=== PATIENT | female | born 1955 | race Caucasian/White ===

== ENCOUNTER 2019-11-13 09:09 | Emergency (ER) | payer OTHER, SELFPAY ==
--- NOTE | ~2019-11-13 | CT_ITS ---
EXAMINATION: CTA chest PE protocol DATE: 11/13/2019 12:36 INDICATION: Shortness of breath TECHNIQUE: Computed tomography angiography (CTA) of the chest was performed with 100 mL Omnipaque-350 intravenous contrast timed to evaluate the pulmonary arteries. Coronal maximum intensity projection 3D-reconstructions were created by the technologist. The dose-length product (DLP) was 411.02 mGy-cm. Automated exposure control and iterative reconstruction technique were employed. COMPARISON: None. FINDINGS: Respiratory motion artifact somewhat limits examination. The pulmonary arteries are well-op acified. No pulmonary embolism is identified. There our bilateral breast implants which appear to be related to bilateral mastectomy with implant reconstruction. No pathologically enlarged thoracic lymp h nodes are identified. The heart size is normal. There are patchy subpleural groundglass opacities, right greater than left, with a lower lung zone predominance. There is no pleural effusion or pneumot horax. There is moderate thoracic spondylosis. IMPRESSION: 1. No pulmonary embolism identified, sensitivity slightly limited by respiratory motion. 2. Lower lung zone predominance groundglass opacities in a pattern consistent with COVID 19 pneumonia . Reviewed, dictated and finalized at location B. IMPRESSION: 1. No pulmonary embolism identified, sensitivity slightly limited by respirator y motion. 2. Lower lung zone predominance groundglass opacities in a pattern consistent w ith COVID 19 pneumonia.
--- NOTE | ~2019-11-13 | XR_ITS ---
XR chest 1V portable INDICATION: Shortness of breath. Covid. TECHNIQUE: 2 view chest. FINDINGS: No prior studies for comparison. There is mild bilateral interstitial prominence and peribronchial cuffing. There is no focal consoli dation, pleural effusion, or pneumothorax. The cardiomediastinal silhouette is normal.] IMPRESSION: 1. Findings most consistent with bronchiolitis versus an atypical or viral pneumonia. Reviewed, dictated and finalized at location A. IMPRESSION: 1. Findings most consistent with bronchiolitis versus an atypical or viral pne [facility].
[2019-11-13 09:15] VITALS: BP 137/75; PULSE 83; RESP 16; TEMP 37.2; O2SAT 99
--- NOTE | 2019-11-13 09:18 | ECG_ITS ---
Measurements Intervals New Point Rate: 80 P: 28 ND: 191 QRS: 11 QRSD: 98 T: 32 QT: 368 QTc: 426 Interpretive Statements SINUS RHYTHM NORMAL ECG Electronically Signed On 11-13-2019 10:43:40 CDT by Uziel Fofana D.O.
[2019-11-13 09:20] VITALS: PULSE 81; O2SAT 99
[2019-11-13 09:35] LABS: Basophils Percent Auto 0.2 % (0.2-1.2); Hematocrit 42.4 % (37.0-47.0); Hemoglobin 14.5 g/dL (12.0-15.0); Immature Granulocyte Absolute 0.01 K/mm3 (0.00-0.031); Immature Granulocyte Percent A 0.2 % (0-0.5); Lymphocytes Absolute Auto 1.14 K/mm3 (0.9-3.2); Lymphocytes Percent Auto 25.5 % (18.3-44.2); Mean Corpuscular HGB Conc 34.2 g/dl (32-36); Mean Corpuscular Hemoglobin 31.3 pg (26-34); Mean Corpuscular Volume 91.6 fl (80-100); Mean Platelet Volume 10.8 fl (7.4-10.4); Monocytes Absolute Auto 0.3 K/mm3 (0.1-0.6); Neutrophils Percent Auto 68.1 % (45.5-73.1); Platelet Count Result 168 k/mm3 (150-375); Red Blood Count 4.63 M/mm3 (4.2-5.4); White Blood Count 4.5 K/mm3 (4.5-10.0)
[2019-11-13 09:48] LABS: Anion Gap 9 mmol/L (8-16); Blood Urea Nitrogen 12 mg/dL (7-17); Calcium 8.7 mg/dL (8.4-10.2); Carbon Dioxide 29 mmol/L (22-30); Chloride 99 mmol/L (98-107); Estimated CRCL calculation 76 ml/min; Estimated Glomerular Filt Rate > 60; Glucose 115 mg/dL (65-105); Potassium 4.1 mmol/L (3.4-5.0); Sodium 137 mmol/L (137-145)
--- NOTE | 2019-11-13 10:29 | ED.SOB ---
HPI - SOB/Dyspnea General Chief Complaint: Shortness of Breath/Dyspnea Stated Complaint: covid+, more short of breath Time Seen by Provider: 11/13/19 09:48 Source: patient Mode of arrival: ambulatory Limitations: no limitations History of Present Illness HPI Narrative: This patient is 64 year old female who presents for evaluation of worsening sob. She reports she was diagnosed with COVID 19 last week. She reports 1 week ago she developed headache, sinus congestion, cough, diarrhea. She states she was starting to feel better but last night she started to feel unwell again. Last night she developed fatigue, nausea and she feels sob. She reports she feels like she is having trouble getting a deep breath. She also thinks she had a fever last night. MD elicited complaint: shortness of breath Related Data Allergies Allergy/AdvReac Type Severity Reaction Status Date / Time codeine AdvReac Mild nausea Verified 12/05/16 10:47 Review of Systems Review of Systems: All systems reviewed & are unremarkable except as noted in HPI and below Constitutional: Constitutional: Reports fatigue and Reports fever(s) Eyes: Eyes: Reports no additional eye complaints Respiratory: Respiratory: Reports dyspnea Gastrointestinal: Gastrointestinal: Denies abdominal pain, Reports diarrhea and Reports nausea Neurologic: Reports headache(s) [facility] Past Medical History Medical History (Updated 11/13/19 @ 13:20 by Jennifer Proctor MD) Breast cancer Surgical History Surgical History (Updated 11/13/19 @ 10:31 by Jennifer Proctor MD) H/O mastectomy Family History Family History (Updated 11/01/13 @ 07:13 by DOCTOR UNKNOWN) Father Carcinoma of colon Social History Social History Smoking end date: 03/07/00 Alcohol intake: current Gender identity (if verbalized by the patient): Female Exam Narrative: Exam Narrative: GENERAL: Well-appearing, well-nourished, and in no acute distress. HEAD: Normocephalic, atraumatic EYES: PERRLA and EOMI, conjunctiva clear without discharge EARS: TM's clear bilaterally without erythema or dullness NOSE: Nares clear, no rhinorrhea or epistaxis THROAT:Mucous membranes moist, Oropharynx normal without erythema, exudate, peritonsillar swelling or fluctuance NECK: Supple, without lymphadenopathy or mass RESPIRATORY: No respiratory distress, Airway patent, Respirations non-labored, Clear to auscultation without rales, rhonchi or wheeze HEART: Regular rate and rhythm. No murmur heard. Normal peripheral pulses. ABDOMEN: Soft, nontender, nondistended, normal active bowel sounds. No masses. No rebound or guarding, No organomegaly. EXTREMITIES: No edema, normal strength with full range of motion. SKIN: Warm, dry, normal color without rash NEURO: Alert and oriented x3. CN 2-12 grossly intact. No focal deficits. PSYCH: Normal mood and affect. Course Reevaluation(s) Reevaluation #1: I discussed with patient that labs are unremarkable. I discussed that she is not requiring oxygen and she is in no acute distress so she is stable for discharge home. Date: 11/13/19 Time: 13:16 Vital Signs Vital signs: Vital Signs Temperature 99 F 11/13/19 09:15 Pulse Rate 83 11/13/19 09:15 Respiratory Rate 16 11/13/19 09:15 Blood Pressure 137/75 11/13/19 09:15 Pulse Oximetry 99 11/13/19 09:15 Temperature 99 F 11/13/19 09:15 Pulse Rate 78 11/13/19 13:24 Respiratory Rate 15 11/13/19 13:24 Blood Pressure 108/58 L 11/13/19 13:24 Pulse Oximetry 97 11/13/19 13:24 MDM - SOB/Dyspnea Lab Data Attestation: I reviewed the patient's lab results. Result diagrams: 11/13/19 09:28 11/13/19 09:28 Labs: Lab Results 11/13/19 11/13/19 11/13/19 Range/Units 09:28 09:28 09:28 WBC 4.5 (4.5-10.0) K/mm3 RBC 4.63 (4.2-5.4) M/mm3 Hgb 14.5 (12.0-15.0) g/dL Hct 42.4 (37.0-47.0) % MCV 91.6 (80-100) fl MCH 31.3 (26-34)
[2019-11-13 10:38] VITALS: BP 132/79; PULSE 78; RESP 22; O2SAT 97
[2019-11-13] MEDS: ONDANSETRON INJ 4 MG/2 ML VIAL IV PUSH (10:44)
[2019-11-13] MEDS: LACTATED RINGERS 1,000 ML 999 ML IV CONT (10:44)
[2019-11-13] MEDS: ALBUTEROL SULFATE (*SP) AEROSOL 1 PUFF 6 PUFF INHALATION (10:48)
--- NOTE | 2019-11-13 11:09 | PC.NURSE ---
PT REPORT TO JUAN KHAN AT THIS TIME, SHE HAS ASSUMED PT CARE.
--- NOTE | 2019-11-13 11:13 | PC.NURSE ---
SPOKE WITH LAB, THEY WILL WORK ON ADDING ON ADDITIONAL LABS ORDERED BY ERP. TO CONTACT IF THERE IS AN ISSUE.
[2019-11-13 11:38] LABS: Alanine Aminotransferase 46 U/L (4-35); Albumin Level 4.4 g/dL (3.5-5.1); Alkaline Phosphatase 114 U/L (38-126); Aspartate Amino Transferase 46 U/L (14-36); Bilirubin,Total 0.4 mg/dL (0.2-1.3)
[2019-11-13 11:40] LABS: INR 0.9; Prothrombin Time 12.1 Seconds (11.1-14.7)
[2019-11-13 11:41] LABS: Partial Thromboplastin Time 29.8 SECONDS (22.3-36.8)
[2019-11-13 11:44] LABS: D Dimer 0.69 ug/mL (<0.48)
[2019-11-13 11:49] LABS: CRP 1.9 mg/dL (<1.0); Troponin I < 0.012 ng/mL (0.000-0.034)
--- NOTE | 2019-11-13 12:26 | PC.NURSE ---
to CT at this time
[2019-11-13 13:17] VITALS: BP 108/58; PULSE 79; RESP 13; O2SAT 96
[2019-11-13 13:24] VITALS: BP 108/58; PULSE 78; RESP 15; O2SAT 97
== END 2019-11-13 13:25 | disposition home or self-care (01) ==
PROVIDERS: Emergency Provider General Practice
DX: U07.1 COVID-19 (principal); J12.89 Other viral pneumonia; Z85.3 Personal history of malignant neoplasm of breast; Z90.10 Acquired absence of unspecified breast and nipple
CPT/HCPCS: 36415; 71045; 71275; 80048; 80076; 84484; 85025; 85380; 85610; 85730; 86140; 93005; 96361; 96374; 99284; A9270; J2405; J7120; Q9967

== ENCOUNTER → 2019-11-26 12:02 | Outpatient (CLI) | payer OTHER, SELFPAY ==
--- NOTE | ~2019-11-26 | XR_ITS ---
XR knee LT min 4V 11/26/2019 12:57 Indication: Left knee pain Procedure: 4 views left knee Comparison: No prior studies for comparison. Findings: Moderate tricompartment osteoarthritis of the left knee. No fracture, subluxation or disloc ation. No significant joint effusion. Impression: 1: Moderate osteoarthritis of the left knee. Reviewed, dictated and finalized at location A. Impression: 1: Moderate osteoarthritis of the left knee.
== END ==
PROVIDERS: PCP Emergency Medicine; Visit Provider Emergency Medicine
DX: R74.8 Abnormal levels of other serum enzymes (principal); M17.12 Unilateral primary osteoarthritis, left knee
CPT/HCPCS: 73564

== ENCOUNTER 2019-12-03 07:32 | Outpatient (CLI) | payer OTHER, SELFPAY ==
--- NOTE | ~2019-12-03 | US_ITS ---
US right upper quadrant DATE: 12/03/2019 08:08 INDICATION: Elevated liver function tests TECHNIQUE: Real-time imaging of liver, pancreas, gallbladder COMPARISON: 12/05/2016 CT abdomen pelvis FINDINGS: There is ringdown artifact of the gallbladder wall suggesting adenomyomatosis of the gallbl adder. There are mobile approximately 1 cm filling defects of the gallbladder with associated shadowi ng consistent with cholelithiasis. No gallbladder wall thickening is noted. No pericholecystic fluid collection. Negative sonographic Cortes's sign. No hepatic space-occupying mass lesion is evident. Normal hepatopedal portal venous flow direction. The pancreas is partially obscured by bowel gas. The common bile duct measures 2.8 mm, normal. IMPRESSION: Cholelithiasis Adenomyomatosis of the gallbladder Reviewed, dictated and finalized at Location A. Reviewed, dictated and finalized at location B.
== END 2019-12-03 07:33 | disposition home or self-care (01) ==
PROVIDERS: PCP Emergency Medicine; Visit Provider Emergency Medicine
DX: R74.8 Abnormal levels of other serum enzymes (principal); K80.20 Calculus of gallbladder without cholecystitis without obstruction
CPT/HCPCS: 76705

== ENCOUNTER 2020-04-05 09:51 | Outpatient (CLI) | payer OTHER, SELFPAY ==
[2020-04-05 10:16] LABS: Basophils Absolute Auto 0.1 K/mm3 (0.0-0.1); Eosinophils Absolute Auto 0.1 K/mm3 (0-0.3); Eosinophils Percent Auto 1.6 % (0-4.4); Hematocrit 40.9 % (37.0-47.0); Hemoglobin 13.5 g/dL (12.0-15.0); Immature Granulocyte Absolute 0.01 K/mm3 (0.00-0.031); Immature Granulocyte Percent A 0.2 % (0-0.5); Lymphocytes Absolute Auto 2.21 K/mm3 (0.9-3.2); Lymphocytes Percent Auto 35.1 % (18.3-44.2); Mean Corpuscular Hemoglobin 30.8 pg (26-34); Mean Corpuscular Volume 93.2 fl (80-100); Mean Platelet Volume 10.6 fl (7.4-10.4); Monocytes Absolute Auto 0.5 K/mm3 (0.1-0.6); Monocytes Percent Auto 7.5 % (2.6-8.5); Neutrophils Absolute Auto 3.5 K/mm3 (1.3-6.7); Neutrophils Percent Auto 54.6 % (45.5-73.1); Platelet Count Result 251 k/mm3 (150-375); Red Blood Count 4.39 M/mm3 (4.2-5.4); Red Cell Distribution Width 13.4 % (11.5-14.5); White Blood Count 6.3 K/mm3 (4.5-10.0)
[2020-04-05 10:29] LABS: Alanine Aminotransferase 39 U/L (4-35); Albumin Level 4.5 g/dL (3.5-5.1); Alkaline Phosphatase 91 U/L (38-126); Anion Gap 2 mmol/L (8-16); Aspartate Amino Transferase 36 U/L (14-36); Bilirubin,Total 0.6 mg/dL (0.2-1.3); Blood Urea Nitrogen 16 mg/dL (7-17); Calcium 9.3 mg/dL (8.4-10.2); Carbon Dioxide 31 mmol/L (22-30); Chloride 105 mmol/L (98-107); Estimated Glomerular Filt Rate > 60; Glucose 106 mg/dL (65-105); Potassium 4.4 mmol/L (3.4-5.0); Sodium 138 mmol/L (137-145)
[2020-04-08 09:08] LABS: H pylori Ag Stool Not Detected (Not Detected)
== END 2020-04-05 09:52 | disposition home or self-care (01) ==
LOC: ANHLAB 09:54
PROVIDERS: PCP Emergency Medicine; Visit Provider Surgery
DX: R10.13 Epigastric pain (principal); Z01.818 Encounter for other preprocedural examination
CPT/HCPCS: 36415; 80053; 85025; 87338

== ENCOUNTER 2020-04-14 02:13 | Day surgery (SDC) | payer OTHER, SELFPAY ==
[2020-04-03 16:13] VITALS: BMI 31.8
[2020-04-14] VITALS (8 sets, daily range): BP systolic 111–137; BP diastolic 64–74; PULSE 57–76; RESP 10–18; TEMP 36.3–36.8; O2SAT 92–100
--- NOTE | 2020-04-14 13:10 | SUR.PREOP ---
1235 SPOKE WITH PT PRIOR TO ARRIVAL ABOUT SURGERY TIME DELAY. 1310 PT UPDATED WITH CONTINUED DELAY OF SURGERY TIME.
--- NOTE | 2020-04-14 13:49 | WPDANESEPPF ---
Anes - Initial Pre Proc Eval Procedure: Operation Date: 04/14/20 14:30 Proposed Procedures p Laparoscopic Cholecystectomy, Possible Intraoperative Cholangiogram, Possible Open - Saman Smith MD Date/Time: 04/14/20 13:49 Surgeon: Saman Smith MD Pre Op Diagnosis: Chronic Cholecystitis With Choleliathiasis Patient Data Age: 64 Gender: F Height: 5 ft 9 in Weight: 98.7 kg Last Vital Signs Temp 36.3 C L 04/14/20 12:17 Pulse 72 04/14/20 12:17 Resp 18 04/14/20 12:17 BP 137/67 04/14/20 12:17 Pulse Ox 99 04/14/20 12:17 Allergies Allergy/AdvReac Type Severity Reaction Status Date / Time codeine AdvReac Mild nausea Verified 04/03/20 16:06 Home Medications Medication Instructions Recorded Confirmed Type valacyclovir 500 mg tablet 500 mg PO DAILY 12/13/19 04/03/20 History biotin 2,000 mcg PO DAILY 04/03/20 04/03/20 History cholecalciferol (vitamin D3) 375 mcg PO DAILY 04/03/20 04/03/20 History [Vitamin D3] turmeric 400 mg PO DAILY 04/03/20 04/03/20 History vitamin B complex 1 cap PO DAILY 04/03/20 04/03/20 History Patient hx anesthesia problems: none Family hx anesthesia problems: none PMFSH Past Medical History Medical History Asthma Breast cancer Kidney stone Surgical History Surgical History H/O breast reconstruction right side in 2019 H/O mastectomy October 2017: Bilateral History of bunionectomy History of tonsillectomy History of tubal ligation Family History Family History Father , Age 62 Carcinoma of colon Grandparent Tuberculosis Social History Social History Smoking packs per day: 1 Smoking cigarettes per day: 20.0 Years smoked: 10 Smoking pack-years: 10.00 Smoking status: Former smoker Smoking end date: 09/04/94 Alcohol intake: current Drinks per week: 7 Substance use: never Living arrangements: alone Additional occupation/education comments: [employer] Gender identity (if verbalized by the patient): Female Spiritual care concerns: No Anes - Eval Final PreProcedure Day of Procedure 04/14/20 13:49 Patient weight: obese Heart: regular rate and rhythm Lungs: clear to auscultation Airway: Mallampati scale class II Neurological: alert and oriented Last oral intake: >/= 8 hours ASA classification: III Emergent: no Anesthetic plan: proceed Anesthesia type and monitoring: general ETT and standard monitoring Informed Consent: The patient's anesthetic plan and its attendant risks and benefits were discussed with the patient/family/POA. Questions were solicited and answers provided to the satisfaction of the patient/family/POA.
[2020-04-14] MEDS: ACETAMINOPHEN 500 MG TABLET 1000 MG PO (14:08)
[2020-04-14] MEDS: KETOROLAC 15 MG/ML VIAL (*BKC) IV PUSH (14:08)
[2020-04-14] MEDS: LACTATED RINGERS 1,000 ML 30 ML IV CONT ×2 (14:16→16:13)
--- NOTE | 2020-04-14 14:24 | SUR.PREOP ---
1240 PT REMAINS DRESSED, SITTING IN RECLINER, DENIES NEEDS 1400 PT AGREES TO HAVE SURGERY WITH MACEY BERMUDEZGING INSTRUCTIONS GIVEN.
[2020-04-14 14:32] LABS: Amylase 73 U/L (30-110); Lipase 107 U/L (23-300)
--- NOTE | 2020-04-14 14:56 | WPDHPUPDATE1 ---
History and Physical Update Update Date/Time: 04/14/20 14:56 History and Physical has been reviewed, including an updated exam of the patient. There are NO changes in the patient's condition. Risks, benefits, and alternatives have been discussed and questions answered. Patient agrees to proceed with procedure. Pt seen and examined. Discussed c pt that Dr Smith was behind in surgery schedule and proposed to do her surgery now. Pt is in agreement, all questions answered.
[2020-04-14] MEDS: ceFAZolin 2 GM/D5W 50 ML 2 GM/50 ML BAG IVPB (15:16)
[2020-04-14] MEDS: BUPIVACAINE/EPINEPHRINE 0.5% 30 ML VIAL INFILTRATE (15:49)
--- NOTE | 2020-04-14 15:59 | PM.PROC ---
Procedure Note - Detailed Date of procedure: 04/14/20 Pre-op diagnosis: Chronic Cholecystitis With Choleliathiasis Post-op diagnosis: same Procedure performed: laparoscopic cholecystectomy Description of procedure: The patient was taken to the operating room placed in the supine position. After adequate induction of general anesthesia, the patient was prepped and draped in normal sterile fashion. A time-out was then performed to verify the patient's identity as well as the procedure being performed. I then made a 5 mm incision in the infraumbilical region. Through this, a Veress needle was placed into the peritoneal cavity and CO2 gas was then insufflated. After adequate pneumoperitoneum was achieved, the Veress needle was removed and a 5 mm trocar was placed through this incision. I then placed the laparoscope through this trocar site and under direct visualization placed a further 12 mm subxiphoid port as well as 2 additional 5 mm ports in the right upper abdomen. The gallbladder was then identified and was noted to be slightly inflamed. I was able to place a grasper at the dome of the gallbladder and this was retracted anterior and cephalad up over the liver. A 2nd retractor was then placed at the infundibulum and retracted laterally, this allowed visualization of the triangle of Calot. I then was able to visualize the cystic duct in its entirety from its proximal insertion into the gallbladder, to its distal junction with the common hepatic/common bile duct junction. At this point, I carefully skeletonized the proximal cystic duct with the [place] dissector. I then clipped and transected the proximal cystic duct. Next I visualized the cystic artery. Again the artery was skeletonized, clipped, and transected. I then used the Bovie cautery to take down the peritoneal attachments of the gallbladder off the liver bed. Once the gallbladder specimen was completely detached, an endo-pouch was placed through the 12 mm port site. I then placed the gallbladder specimen into the Endo pouch and removed the endo-pouch from the 12 mm port site. The specimen will now be sent to pathology for further review. I then copiously irrigated the right upper quadrant. Hemostasis was noted in the liver bed, the clips were noted to be in good position on both the cystic duct stump and the cystic artery stump. No other pathology was noted in the right upper quadrant. I then moved the laparoscope to the subxiphoid port. No iatrogenic injury or other pathology was noted in the lower abdomen. At this point, the abdomen was desufflated and all ports removed. The fascia of the 12 mm subxiphoid port was closed with a 0 Vicryl figure of 8 suture. All port sites were then closed with 4.O Monocryl subcuticular sutures. Dermabond was placed on each incision. The patient tolerated the procedure well, was extubated in the operating room postoperative and will be transferred to the recovery room in stable condition. Implants: none Anesthesia: GETA Surgeon: Crystal Fu MD Estimated blood loss (mL): 5 Drains: No Packing: No Pathology: yes Complications: No immediate complications Condition: stable Disposition: PACU Findings: chronic cholecystitis
[2020-04-14] MEDS: ONDANSETRON INJ 4 MG/2 ML VIAL IV PUSH (16:41)
[2020-04-14] MEDS: diphenhydrAMINE HCl INJ 50 MG/ML VIAL 25 MG IV PUSH (17:02)
== END 2020-04-14 18:25 | disposition home or self-care (01) ==
PROVIDERS: Surgery; Family Provider Internal Medicine; PCP Emergency Medicine; Visit Provider Surgery
PROC: 0FT44ZZ Resection of Gallbladder, Percutaneous Endoscopic Approach (ICD-10-PCS; CPT 47562; principal; 2020-04-14 14:30)
DX: K80.10 Calculus of gallbladder with chronic cholecystitis without obstruction (principal); Z85.3 Personal history of malignant neoplasm of breast; Z87.891 Personal history of nicotine dependence; E66.9 Obesity, unspecified; Z68.32 Body mass index [BMI] 32.0-32.9, adult
CPT/HCPCS: 47562; 36415; 80053; 82150; 83690; 85025; 87338; 88304; A9270; J0690; J1100; J1200; J1885; J2250; J2405; J2704; J2710; J3010; J7030; J7120

== ENCOUNTER 2025-01-28 14:28 | Outpatient (CLI) | payer MEDICARE, SELFPAY ==
--- NOTE | ~2025-01-28 | DEXA_ITS ---
Bone Density Report Name: JESSICA BEAR (JOANN) J Age: 69 Sex: Female Ethnicity: White Date of : 1955 Indication: postmenopausal; screening for osteoporosis; cancer; Referring Provider: BARBARA MIRZA Study: Bone densitometry was performed. Exam Date: January 28, 2025 Accession number: [id number] Bone Density: Region BMD T-score Z-score Classification AP Spine(L1, L2, L3) 1.201 1.7 3.5 Normal Femoral Neck (Left) 0.929 0.7 2.4 Normal Total Hip (Left) 1.031 0.7 2.1 Normal Femoral Neck (Right) 0.891 0.4 2.0 Normal Total Hip (Right) 0.966 0.2 1.5 Normal Total Hip Mean 0.998 0.5 1.8 Normal World Health Organization criteria for BMD impression classify patients as: Normal (T-score at or above -1.0), Osteopenia (T-score between -1.0 and -2.5), or Osteoporosis (T-score at or below -2.5). 10-year Fracture Risk: FRAX not reported because: All T-scores for Spine Total, Hip Total, Femoral Neck at or above -1.0 Clinical Information Provided by Patient: Has the following medical conditions: Cancer, breast cancer Patient maximum height was 68.5 Menopause Age: 52 No regular weight bearing exercise Does not regularly consume dairy products Onset of menses at age 16 Number of children 2 Impression: The patient has normal bone mass. Discussion: BONE DENSITY IS ABOVE THE MINIMUM DESIRABLE LEVEL AT ALL SKELETAL SITES TESTED. This patient?s bone mineral density is above the minimum desirable level (T-score -1.0 or better) at all sites measured. The patient should follow a healthful lifestyle (good nutrition with adequate calcium and vitamin D, and appropriate weight-bearing exercise). Follow-Up: Consider repeating this study in 5 years or sooner if there is some new clinical indication. Reported by: DEVYN on 01/28/2025 2:53:00 PM. Reviewed, dictated and finalized at location A.
== END 2025-01-28 14:29 | disposition home or self-care (01) ==
LOC: MICIMG 14:31
PROVIDERS: PCP Family Medicine; Visit Provider Family Medicine
DX: Z78.0 Asymptomatic menopausal state (principal)
CPT/HCPCS: 77080